=== PATIENT | female | born 1965 | race Caucasian/White ===

== ENCOUNTER 2017-11-17 08:36 | Outpatient (CLI) | payer OTHER ==
[2017-11-17 12:53] LABS: BASOPHILS # (AUTO) 0.1 10^3/uL (0.0-0.1); EOSINOPHILS # (AUTO) 0.3 10^3/uL (0.0-0.7); EOSINOPHILS % (AUTO) 2.8 %; HGB - HEMOGLOBIN 12.8 g/dL (12.0-16.0); LYMPHOCYTES % (AUTO) 30.7 %; MEAN CORPUSCULAR HEMOGLOBIN 29.6 pg (27.0-31.0); MEAN CORPUSCULAR HGB CONC 33.8 g/dL (32.0-36.0); MEAN CORPUSCULAR VOLUME 87.8 fL (81.0-99.0); MEAN PLATELET VOLUME 8.3 fL (7.9-10.8); MONOCYTES # (AUTO) 0.6 10^3/uL (0.0-1.0); MONOCYTES % (AUTO) 6.1 %; NEUTROPHILS # (AUTO) 5.7 10^3/uL (1.5-6.6); NEUTROPHILS % (AUTO) 59.4 %; PLT - PLATELET COUNT 278 10^3/uL (130-450); RED BLOOD COUNT 4.34 10^6/uL (4.20-5.40); RED CELL DISTRIBUTION WIDTH 13.8 % (12.0-15.0); WHITE BLOOD COUNT 9.6 x10^3/uL (4.8-10.8)
[2017-11-17 13:01] LABS: ALBUMIN 4.2 g/dL (3.2-5.5); ALBUMIN/GLOBULIN RATIO 1.2 (1.0-2.2); ALKALINE PHOSPHATASE 55 IU/L (42-121); ALT ALANINE AMINOTRANSFERASE 19 IU/L (10-60); AST ASPARTATE AMINOTRANSFERASE 24 IU/L (10-42); BILIRUBIN,TOTAL 0.7 mg/dL (0.2-1.0); BUN - BLOOD UREA NITROGEN 15 mg/dL (6-20); CALCIUM 9.5 mg/dL (8.5-10.3); CARBON DIOXIDE - CO2 24 mmol/L (21-32); CHLORIDE 104 mmol/L (101-111); CHOL/HDL RATIO 6.6 (<4.4); CHOLESTEROL 258 mg/dL; CREATININE 0.7 mg/dL (0.4-1.0); GFR - MDRD 88 (>89); GLUCOSE 95 mg/dL (70-100); HDL CHOLESTEROL 39 mg/dL; LDL CHOLESTEROL,CALCULATED 170 mg/dL; LDL/HDL RATIO 4.4 (<4.4); SODIUM 138 mmol/L (135-145); TOTAL PROTEIN 7.6 g/dL (6.7-8.2); VLDL CHOLESTEROL 49 mg/dL
== END 2017-11-17 08:37 ==
LOC: LAB.N 08:36
PROVIDERS: ATTEND Family Medicine
DX: E78.5 Hyperlipidemia, unspecified (principal); F41.8 Other specified anxiety disorders
CPT/HCPCS: 36415; 80053; 80061; 83721; 84443; 85025

== ENCOUNTER 2019-03-04 08:07 | Outpatient (CLI) | payer OTHER ==
--- NOTE | 2019-03-07 09:04 | Ultrasound Report ---
Reason: EPIGASTRIC PAIN, LOCALIZED SWELLING, MASS AND LUMP Procedure Date: 03/04/2019 Accession Number: [id number] / [id number] Procedure: US - Abdomen Limited CPT Code: FULL RESULT: EXAM: ABDOMEN ULTRASOUND LIMITED, RUQ EXAM DATE: 03/04/2019 09:00 AM. CLINICAL HISTORY: EPIGASTRIC PAIN, LOCALIZED SWELLING, MASS AND LUMP. COMPARISON: ABDOMEN 10/23/2014 11:27 AM. TECHNIQUE: Real-time scanning was performed with static images obtained. FINDINGS: Liver: Normal in size and echotexture. 15.2 cm. Main portal vein flow: Hepatopetal. Gallbladder: Possible sludge gallbladder neck. No stones, wall thickening, or sonographic Packer's sign. Biliary System: CBD measures 5 mm. No intrahepatic or extrahepatic ductal dilatation. Free fluid: None. Right kidney: 11 cm longitudinally. No stones, hydronephrosis, or solid masses. Other: Corresponding to the midline palpable lump is a 6.3 x 2 x 5.3 cm avascular isoechoic subcutaneous nodule, possibly a lipoma. IMPRESSION: 1. Gallbladder sludge. 2. 6.3 x 2 x 5.3 cm avascular midline subcutaneous mass corresponding to the palpable finding, possibly a lipoma. This could be confirmed by noncontrast CT. Suggest clinical follow-up. 3. Otherwise negative. RADIA
== END 2019-03-04 08:08 | disposition home or self-care (01) ==
LOC: DI 08:07
PROVIDERS: ATTEND Nurse Practitioner Gerontology
DX: R10.13 Epigastric pain (principal); R22.2 Localized swelling, mass and lump, trunk
CPT/HCPCS: 76705

== ENCOUNTER 2019-03-16 16:46 | Outpatient (CLI) | payer OTHER ==
--- NOTE | 2019-03-18 10:57 | CT Report ---
Reason: ABDOMINAL MASS, ABN US Procedure Date: 03/16/2019 Accession Number: [id number] / [id number] Procedure: CT - ABDOMEN WO CPT Code: FULL RESULT: EXAM: CT ABDOMEN EXAM DATE: 03/16/2019 05:15 PM. CLINICAL HISTORY: ABDOMINAL MASS, ABN US. COMPARISON: ABDOMEN LIMITED 03/04/2019 8:19 AM. TECHNIQUE: Routine helical CT imaging was performed through the abdomen. IV contrast: None Enteric contrast: None Reconstruction: Coronal and sagittal. In accordance with CT protocol optimization, one or more of the following dose reduction techniques were utilized for this exam: automated exposure control, adjustment of mA and/or KV based on patient size, or use of iterative reconstructive technique. FINDINGS: Lung Bases: Unremarkable. Liver: Normal. No masses. Gallbladder/Bile Ducts: Unremarkable. Spleen: Normal. Pancreas: Tiny intrapancreatic lipoma (3/42). No inflammation or ductal dilation. Adrenal Glands: Normal. Kidneys: Normal. No masses or hydronephrosis. Peritoneal Cavity/Bowel: Unremarkable stomach. Normal caliber small bowel loops. Visualized colon is unremarkable. No pathologically enlarged intraperitoneal or retroperitoneal lymph nodes. No intra-abdominal fluid collections. No intra-abdominal masses. Vasculature: Scattered atherosclerotic calcifications. No aneurysms. Bones: This disease in the spine. No focal suspicious osseous lesions. Other: No anterior abdominal wall masses are seen in the subcutaneous soft tissues on noncontrast CT. No solid anterior abdominal wall nodules are evident. No ventral hernias identified. Tiny 1.2 x 0.5 cm fat-containing umbilical hernia is noted. Anterior abdominal wall musculature is otherwise within normal limits. IMPRESSION: 1. No anterior abdominal wall masses identified on noncontrast CT. No lipoma is seen. No other solid nodules. 2. Tiny fat-containing umbilical hernia is seen. 3. No acute abnormality seen in the abdomen on noncontrast evaluation. RADIA
== END 2019-03-16 16:47 | disposition home or self-care (01) ==
LOC: DI 16:46
PROVIDERS: ATTEND Nurse Practitioner Gerontology
DX: K42.9 Umbilical hernia without obstruction or gangrene (principal)
CPT/HCPCS: 74150

== ENCOUNTER 2020-08-23 08:49 | Outpatient (CLI) | payer MEDICAID ==
[2020-08-23] MEDS ORDERED: IOVERSOL 320 100 ML VIAL IVP ONE ×2 (09:12→14:34)
[2020-08-23] MEDS ORDERED: IOPAMIDOL-300 50 ML VIAL ONE (09:12)
--- NOTE | 2020-08-23 13:24 | CT Report ---
PROCEDURE: ABDOMEN W INDICATIONS: ABDOMINAL MASS CONTRAST: IV CONTRAST: Optiray 320 ml: 100 PO CONTRAST: Isovue 300 ml50 TECHNIQUE: After the administration of oral and intravenous contrast, 5 mm thick sections acquired from the diap hragms to the iliac crests. 5 mm thick coronal and sagittal reformats were acquired. For radiation dose reduction, the following was used: automated exposure control, adjustment of mA and/or kV accor ding to patient size. COMPARISON: Prior CT scanning 03/16/2019. FINDINGS: Image quality: Excellent. Lung bases: Lung bases are clear. Heart size is normal. Solid organs: Liver and spleen are normal in size and enhancement. Gallbladder appears normal Bili citlali system is non dilated. Pancreas enhances normally. No adrenal nodules. Kidneys are normal in s ize, without hydronephrosis. Peritoneum and bowel: Contrast enhanced bowel loops appear normal in caliber. No free fluid or air. Nodes and vessels: No retroperitoneal or mesenteric adenopathy by size criteria. Aorta and inferior vena cava are normal in size. Bones: No suspicious bony lesions. No vertebral body compression fractures. Miscellaneous: No ventral hernias. The pelvis is not included on this examination. IMPRESSION: The clinical history provided is nonspecific and does not indicate site of clinical concern. No mass is identified, no herniation is seen. The pelvis was not included on this examination which was reque sted as a abdomen CT only. Reviewed by: Lior Buckner MD on 08/23/2020 1:23 PM PST Approved by: Lior Buckner MD on 08/23/2020 1:23 PM PST Station ID: [id number]
[2020-08-23] MEDS ORDERED: IOPAMIDOL-300 50 ML VIAL PO ONE (14:34)
== END 2020-08-23 08:50 | disposition home or self-care (01) ==
LOC: DI 08:49
PROVIDERS: ATTEND Family Medicine
DX: R19.00 Intra-abdominal and pelvic swelling, mass and lump, unspecified site (principal)
CPT/HCPCS: 74160; Q9967

== ENCOUNTER 2020-10-29 20:32 | Outpatient (CLI) | payer MEDICAID | END 2020-10-29 20:33 | disposition home or self-care (01) | LOC: COV 20:32 | PROVIDERS: ATTEND Surgery | DX: Z53.9 Procedure and treatment not carried out, unspecified reason (principal) ==

== ENCOUNTER 2020-11-01 07:29 | Day surgery (SDC) | payer MEDICAID ==
[~2020-11-01 07:29] MED LIST: LACTATED RINGERS 1,000 ML IV ONE
[2020-11-01 08:43] LABS: B. PARAPERTUSSIS- RESP PCR PAN NOT DETECTED; B. PERTUSSIS- RESP PCR PANEL NOT DETECTED; C. PNEUMONIAE- RESP PCR PANEL NOT DETECTED; CORONAVIRUS 229E-RESP PCR NOT DETECTED; CORONAVIRUS HKU1-RESP PCR NOT DETECTED; CORONAVIRUS NL63-RESP PCR NOT DETECTED; CORONAVIRUS OC43-RESP PCR NOT DETECTED; HUMAN METAPNEUMOVIRUS NOT DETECTED; INFLUENZA A- RESP PCR PANEL NOT DETECTED; INFLUENZA B - RESP PCR PANEL NOT DETECTED; M. PNEUMONIAE- RESP PCR PANEL NOT DETECTED; PARAINFLUENZA VIRUS 1 NOT DETECTED; PARAINFLUENZA VIRUS 2 NOT DETECTED; PARAINFLUENZA VIRUS 3 NOT DETECTED; PARAINFLUENZA VIRUS 4 NOT DETECTED; RHINOVIRUS/ENTEROVIRUS NOT DETECTED; RSV- RESP PCR PANEL NOT DETECTED; SARS-CoV-2 -RESP PCR PANEL NOT DETECTED
[2020-11-01] MEDS ORDERED: LIDO GARGLE 30 ML BOTTLE ONE (09:34)
[2020-11-01] MEDS ORDERED: fentaNYL 100 MCG/2 ML VIAL ONE (09:34)
[2020-11-01] MEDS ORDERED: MIDAZOLAM 2 MG/2 ML VIAL ONE ×3 (09:34→09:51)
[2020-11-01] MEDS ORDERED: LACTATED RINGERS 1,000 ML IV ONE (10:03)
[2020-11-01 10:31] VITALS: BP 123/88
== END 2020-11-01 07:30 | disposition home or self-care (01) ==
LOC: SDS 07:29
PROVIDERS: ATTEND Surgery
PROC: 0DB68ZX Excision of Stomach, Via Natural or Artificial Opening Endoscopic, Diagnostic (ICD-10-PCS; 2020-11-01)
PROC: 0DB58ZX Excision of Esophagus, Via Natural or Artificial Opening Endoscopic, Diagnostic (ICD-10-PCS; 2020-11-01)
PROC: 0DB98ZX Excision of Duodenum, Via Natural or Artificial Opening Endoscopic, Diagnostic (ICD-10-PCS; principal; 2020-11-01 08:15)
DX: K22.70 Barrett's esophagus without dysplasia (principal); K21.9 Gastro-esophageal reflux disease without esophagitis; Z20.822 Contact with and (suspected) exposure to COVID-19
CPT/HCPCS: 0202U; 43239; J7120

== ENCOUNTER 2021-03-11 12:07 | Outpatient (CLI) | payer MEDICAID | END 2021-03-11 23:59 | disposition home or self-care (01) | LOC: LAB.N 12:07 | PROVIDERS: ATTEND Physician Assistant Medical | DX: J01.90 Acute sinusitis, unspecified (principal); Z20.822 Contact with and (suspected) exposure to COVID-19 ==

== ENCOUNTER 2021-04-01 12:47 | Outpatient (CLI) | payer MEDICAID ==
--- NOTE | 2021-04-02 09:09 | XRAY Report ---
PROCEDURE: Shoulder 3 View RT INDICATIONS: R SHOULDER PX TECHNIQUE: 3 views of the shoulder were acquired. COMPARISON: None. FINDINGS: BONES: No acute, displaced fracture or dislocation. The glenohumeral and acromioclavicular joint spac es are maintained. Mild to moderate osteophytosis about the AC joint. SOFT TISSUES: No focal abnormality or appreciable pneumothorax. IMPRESSION: 1.No acute osseous abnormality. Reviewed by: Jeff Mauro MD on 04/01/2021 1:18 PM PDT Approved by: Jeff Mauro MD on 04/01/2021 1:18 PM PDT Station ID: [id number]
== END 2021-04-01 23:59 | disposition home or self-care (01) ==
LOC: DI.N 12:47
PROVIDERS: ATTEND Family Medicine
DX: M25.511 Pain in right shoulder (principal)

== ENCOUNTER 2021-05-27 08:56 | Outpatient (CLI) | payer MEDICAID ==
--- NOTE | 2021-05-27 16:21 | XRAY Report ---
PROCEDURE: Shoulder 1 View RT INDICATIONS: RIGHT SHOULDER PAIN TECHNIQUE: 1 views of the shoulder were acquired. COMPARISON: X-ray shoulder 04/01/2020 FINDINGS: Bones: No fractures or dislocations. No suspicious bony lesions. Visualized ribs appear intact. Soft tissues: No suspicious soft tissue calcifications. IMPRESSION: No visualized acute fracture or dislocation. However, occult injury cannot be excluded. Recommend short interval imaging follow-up in 7-10 days as clinically indicated for additional evalua tion. Reviewed by: Eboni Willams MD on 05/27/2021 4:20 PM [facility] Approved by: Eboni Willams MD on 05/27/2021 4:20 PM [facility] Station ID: [id number]
== END 2021-05-27 23:59 | disposition home or self-care (01) ==
LOC: DI.N 08:56
PROVIDERS: ATTEND Physician Assistant
DX: M25.511 Pain in right shoulder (principal)

== ENCOUNTER 2021-08-29 14:57 | Outpatient (CLI) | payer MEDICAID ==
[2021-08-29] MEDS ORDERED: GADOBUTROL 10 MMOL/10 ML VIAL ONE (15:10)
[2021-08-29 15:29] LABS: CREATININE 0.6 mg/dL (0.4-1.0)
[2021-08-29] MEDS ORDERED: GADOBUTROL 10 MMOL/10 ML VIAL IVP ONE (16:22)
--- NOTE | 2021-08-29 19:03 | MRI Report ---
PROCEDURE: MRI brain with and without contrast INDICATIONS: NUMBNESS AND TINGLING CONTRAST: IV CONTRAST: Gadavist ml: 9 TECHNIQUE: Noncontrast axial T1 spin echo, axial T2 fast spin echo, sagittal and axial FLAIR, coronal T2 fast sp in echo, axial gradient echo, axial diffusion and ADC through the brain. After the administration of contrast, axial and coronal T1 spin echo with fat saturation through the brain. COMPARISON: 11/15/2012 FINDINGS: Image quality: Excellent. CSF spaces: Basal cisterns are patent. No extra-axial fluid collections. Ventricles are normal in size and shape. Brain: No midline shift. No intracranial bleeds or masses. No abnormal intracranial enhancement. There is cerebral volume loss for age. There is periventricular white matter chronic small vessel is chemic change. The brainstem appears normal. Diffusion-weighted images demonstrate no acute infarct s. Normal intravascular flow voids are present. Skull and face: Calvarial marrow is normal in signal. Orbits appear normal. Sinuses: Fluid in the left mastoid may be inflammatory or postinflammatory IMPRESSION: 1. Atrophy and chronic ischemic change without acute hemorrhage, infarct or mass lesion. 2. Fluid in left mastoid may be inflammatory or postinflammatory Reviewed by: Dusty Chavez MD on 08/29/2021 6:01 PM [facility] Approved by: Dusty Chavez MD on 08/29/2021 6:01 PM [facility] Station ID: [id number]
== END 2021-08-29 14:58 | disposition home or self-care (01) ==
LOC: DI 14:57
PROVIDERS: ATTEND Family Medicine
DX: R20.2 Paresthesia of skin (principal); G31.89 Other specified degenerative diseases of nervous system; I67.82 Cerebral ischemia
CPT/HCPCS: 36415; 70553; 82565; A9585

== ENCOUNTER 2021-09-09 07:46 | Day surgery (SDC) | payer MEDICAID ==
[2021-09-09] MEDS ORDERED: LACTATED RINGERS 1,000 ML IV ONE ×2 (08:15→10:11)
[2021-09-09] MEDS ORDERED: CEFAZOLIN SODIUM IN 0.9 % NACL 2 GM/50 ML BAG IV ONE (08:30)
--- NOTE | 2021-09-09 09:03 | ANESTHESIA ---
Pre-Anesthesia VS, & Labs - Diagnosis abdominal wall lipoma - Procedure Excision of abdominal wall lipoma Vital Signs: Temp Pulse Resp BP Pulse Ox 36.1 C L 65 16 125/68 97 09/09/21 08:00 09/09/21 08:00 09/09/21 08:00 09/09/21 08:00 09/09/21 08:00 Height: 5 ft 5 in Weight (kg): 89.9 kg Body Mass Index: 33.0 BMI Classification: Obese - NPO >8 hours - Is Patient ?: No - Lab Results Lab results reviewed: Yes Home Medications and Allergies Home Medications: Ambulatory Orders Losartan [Cozaar] 100 mg PO DAILY 08/27/21 Multivitamin 1 each PO DAILY 08/27/21 Omeprazole Magnesium 40 tab ORAL BID 10/31/20 Losartan [Cozaar] 100 mg PO DAILY 08/27/21 Multivitamin 1 each PO DAILY 08/27/21 Allergies/Adverse Reactions: Allergies Allergy/AdvReac Type Severity Reaction Status Date / Time amoxicillin Allergy Hives Verified 08/27/21 15:47 codeine Allergy Hives Verified 08/27/21 15:47 famotidine [From Pepcid] Allergy Hives Verified 08/27/21 15:47 lidocaine Allergy elevated BP Verified 08/27/21 15:47 Anes History & Medical History - Anesthetic History Anesthesia Complications: reports: No previous complications Family history of Anesthesia Complications: Denies Family history of Malignant Hyperthermia: Denies - Medical History Cardiovascular: reports: Hypertension Pulmonary: reports: None Gastrointestinal: reports: GERD, Other Urinary: reports: None Musculoskeletal: reports: Osteoarthritis Endocrine/Autoimmune: reports: None Skin: reports: None Smoking Status: Current every day smoker - Surgical History General: reports: Colonoscopy, EGD Eyes Ears Nose Throat (EENT): reports: Myringotomy (tubes), Tonsil/Adenoidectomy Gynecologic: reports: section Orthopedic: reports: Arthroscopic surgery Exam General: Alert, Oriented x3, Cooperative, No acute distress Dental: WNL Mouth Openin Fingerbreadth Neck Mobility: Normal Mallampati classification: II Plan Anesthesia Type: General Consent for Procedure(s) Verified and Reviewed: Yes Code Status: Attempt Resuscitation ASA classification: 2-Mild systemic disease Is this case an emergency?: No
[2021-09-09] MEDS ORDERED: HYDROmorphone 0.5 MG/0.5 ML SYRINGE IVP PRN (09:06)
[2021-09-09] MEDS ORDERED: NALOXONE 0.4 MG/ML VIAL IVP PRN (09:06)
[2021-09-09] MEDS ORDERED: fentaNYL 100 MCG/2 ML VIAL IVP PRN (09:06)
[2021-09-09] MEDS ORDERED: ONDANSETRON 4 MG/2 ML VIAL IVP PRN ×2 (09:06→10:08)
[2021-09-09] MEDS ORDERED: ePHEDrine 50 MG/ML VIAL IVP PRN (09:06)
[2021-09-09] MEDS ORDERED: MORPHINE 2 MG/ML CARPUJECT IVP PRN (09:06)
[2021-09-09] MEDS ORDERED: METOCLOPRAMIDE 10 MG/2 ML VIAL IVP PRN (09:06)
[2021-09-09] MEDS ORDERED: ATROPINE ABBOJECT 1 MG/10 ML SYRINGE IVP PRN (09:06)
[2021-09-09] MEDS ORDERED: LIDOCAINE 2%-EPI 1:100000 20 ML MDV ONE (09:07)
[2021-09-09] MEDS ORDERED: BUPIVACAINE 0.5% PF 10 ML VIAL ONE (09:07)
[2021-09-09] MEDS ORDERED: MIDAZOLAM 2 MG/2 ML VIAL ONE ×2 (09:30→10:04)
[2021-09-09] MEDS ORDERED: fentaNYL 100 MCG/2 ML VIAL ONE (09:30)
[2021-09-09] MEDS ORDERED: ONDANSETRON 4 MG/2 ML VIAL ONE (09:31)
[2021-09-09] MEDS ORDERED: LACTATED RINGERS 1,000 ML IV SCH (10:00)
--- NOTE | 2021-09-09 10:05 | OPERATIVE REPORT ---
Operative Report - General Procedure Date: 09/09/21 Planned Procedure: Excision of abdominal wall lipoma Pre-Op Diagnosis: Symptomatic lipoma of the abdominal wall Procedure Performed: Excision of abdominal wall lipoma Post Op Diagnosis: Same - Procedure Note Primary Surgeon: Bee Anesthesia Provider: LINDEN Patterson Anesthesia Technique: General LMA Pathology: 4x12 cm lipoma to pathology in formalin Estimated Blood Loss (mL): 5 Indications: Symptomatic abdominal wall lipoma Findings: 12 x 4 cm fatty mass Complications: None apparent - Other Other Information/Narrative: After obtaining informed consent, the patient is brought to the operating room and placed in the supine position on the operating table. Following successful induction of general endotracheal anesthesia, appropriate padding of all bony prominences, and placement of appropriate monitors, the abdomen was prepped and draped in the standard surgical fashion. A timeout was held per scope protocol. All elements of the surgical safety checklist were followed before, during, and after the procedure. Using a 15 blade scalpel, a 4 cm horizontal incision was created directly over the palpable mass and carried down through the skin and subcutaneous tissue. The lipoma was easily identified and mobile from the remainder of the subcutaneous tissue. Areolar attachments were divided sharply. The neurovascular pedicle of the lipoma was then addressed with cautery. It was delivered into the field without difficulty. The wound was then checked for hemostasis. It was irrigated with warm water and aspirated free of all fluid and particulate matter. The wound was then closed in 2 layers with Vicryl and Monocryl suture and Dermabond was applied to the skin. All sponge, needle, and instrument counts were correct at the conclusion of the case. The patient was let awake from anesthesia without difficulty and taken to the postanesthesia care unit in good condition.
[2021-09-09] MEDS ORDERED: oxyCODONE 5 MG TABLET PO PRN (10:08)
[2021-09-09] MEDS ORDERED: HYDROmorphone 0.5 MG/0.5 ML SYRINGE ONE (10:25)
[2021-09-09 11:38] VITALS: BP 121/81
--- NOTE | 2021-09-09 13:02 | ANESTHESIA POST OP EVALUATION ---
Anesthesia Post Eval - Post Anesthesia Eval Vitals: Last Vital Signs Temp 36 C L 09/09/21 11:30 Pulse 67 09/09/21 11:30 Resp 16 09/09/21 11:30 BP 121/81 H 09/09/21 11:30 Pulse Ox 97 09/09/21 11:30 CV Function Including HR & BP: Stable Pain Control: Satisfactory Nausea & Vomiting: Negative Mental Status: Baseline Respiratory Status: Airway Patent Hydration Status: Satisfactory Anesthesia Complications: None
== END 2021-09-09 07:47 | disposition home or self-care (01) ==
LOC: SDS 07:46
PROVIDERS: ATTEND Surgery
PROC: 0JB80ZZ Excision of Abdomen Subcutaneous Tissue and Fascia, Open Approach (ICD-10-PCS; principal; 2021-09-09 09:00)
DX: D17.1 Benign lipomatous neoplasm of skin and subcutaneous tissue of trunk (principal); E66.9 Obesity, unspecified; Z68.33 Body mass index [BMI] 33.0-33.9, adult; F17.200 Nicotine dependence, unspecified, uncomplicated
CPT/HCPCS: 11406; 12032; J0690; J1170; J7120; 81025

== ENCOUNTER 2021-11-11 09:27 | Outpatient (CLI) | payer MEDICAID ==
--- NOTE | 2021-11-11 14:35 | CT Report ---
PROCEDURE: Sinuses INDICATIONS: ACUTE SINUSITIS TECHNIQUE: Noncontrast 3.0 mm axial images acquired from the frontal sinuses to the mid-sella, with coronal and sagittal reformats. For radiation dose reduction, the following was used: automated exposure control , adjustment of mA and/or kV according to patient size. COMPARISON: None. FINDINGS: Image quality: Excellent. Maxillary Sinuses: No bony remodeling or destruction. Sinuses are clear. Ethmoid Air Cells: No bony remodeling or destruction. Sinuses are clear. Sphenoid Sinuses: No bony remodeling or destruction. Sinuses are clear. Frontal Sinuses: No bony remodeling or destruction. Sinuses are clear. Ostiomeatal Complexes: Ostiomeatal complexes are patent. No Latoya cells. Miscellaneous: Visualized intra-orbital contents are normal. No leena bullosa. No nasal septal de viation. IMPRESSION: Unremarkable CT of the paranasal sinuses. No evidence of acute sinusitis Reviewed by: Dusty Chavez MD on 11/11/2021 1:34 PM [facility] Approved by: Dusty Chavez MD on 11/11/2021 1:34 PM [facility] Station ID: [id number]
== END 2021-11-11 09:28 | disposition home or self-care (01) ==
LOC: DI 09:27
PROVIDERS: ATTEND Physician Assistant Medical
DX: J01.90 Acute sinusitis, unspecified (principal)

== ENCOUNTER 2021-11-12 11:29 | Outpatient (CLI) | payer MEDICAID ==
[2021-11-13 03:12] LABS: HEPATITIS B SURFACE AB QUANT 324.4 mIU/mL (Immunity>9.9)
[2021-11-13 08:12] LABS: MEASLES ANTIBODIES IGG >300.0 AU/mL (Immune >16.4); VARICELLA-ZOSTER AB IGG 1437 index (Immune >165)
[2021-11-15 13:11] LABS: QUANTIFERON MITOGEN VALUE 3.98 IU/mL (.); QUANTIFERON NIL VALUE 0.02 IU/mL (.); QUANTIFERON TB1 AG VALUE 0.02 IU/mL (.); QUANTIFERON TB2 AG VALUE 0.01 IU/mL (.); QUANTIFERON-TB GOLD PLUS Negative (Negative)
== END 2021-11-12 11:30 | disposition home or self-care (01) ==
LOC: LAB.N 11:29
PROVIDERS: ATTEND Family Medicine
DX: Z01.84 Encounter for antibody response examination (principal); Z11.1 Encounter for screening for respiratory tuberculosis
CPT/HCPCS: 36415; 81599; 86317; 86480; 86735; 86762; 86765; 86787

== ENCOUNTER 2022-12-29 11:20 | Outpatient (CLI) | payer MEDICAID ==
[2022-12-29 18:32] LABS: BASOPHILS # (AUTO) 0.1 10^3/uL (0.0-0.1); BASOPHILS % (AUTO) 1.1 %; EOSINOPHILS # (AUTO) 0.3 10^3/uL (0.0-0.7); EOSINOPHILS % (AUTO) 3.2 %; HCT - HEMATOCRIT 39.6 % (37.0-47.0); HGB - HEMOGLOBIN 12.9 g/dL (12.0-16.0); LYMPHOCYTES # (AUTO) 3.6 10^3/uL (1.5-3.5); LYMPHOCYTES % (AUTO) 40.9 %; MEAN CORPUSCULAR HEMOGLOBIN 28.7 pg (27.0-31.0); MEAN CORPUSCULAR HGB CONC 32.6 g/dL (32.0-36.0); MEAN PLATELET VOLUME 10.2 fL (7.9-10.8); MONOCYTES # (AUTO) 0.5 10^3/uL (0.0-1.0); MONOCYTES % (AUTO) 6.1 %; NEUTROPHILS # (AUTO) 4.2 10^3/uL (1.5-6.6); NEUTROPHILS % (AUTO) 47.7 %; PLT - PLATELET COUNT 331 10^3/uL (130-450); RED CELL DISTRIBUTION WIDTH 13.7 % (12.0-15.0); WHITE BLOOD COUNT 8.9 x10^3/uL (4.8-10.8)
[2022-12-29 18:42] LABS: ALBUMIN 4.5 g/dL (3.2-5.5); ALBUMIN/GLOBULIN RATIO 1.3 (1.0-2.2); ALKALINE PHOSPHATASE 71 IU/L (42-121); ALT ALANINE AMINOTRANSFERASE 26 IU/L (10-60); AST ASPARTATE AMINOTRANSFERASE 30 IU/L (10-42); BILIRUBIN,TOTAL 0.7 mg/dL (0.2-1.0); BUN - BLOOD UREA NITROGEN 13 mg/dL (6-20); CALCIUM 9.7 mg/dL (8.5-10.3); CARBON DIOXIDE - CO2 22 mmol/L (21-32); CHLORIDE 102 mmol/L (101-111); CHOLESTEROL 289 mg/dL; CREATININE 0.7 mg/dL (0.4-1.0); GFR - MDRD 87 (>89); GLUCOSE 85 mg/dL (70-100); HDL CHOLESTEROL 41 mg/dL; LDL CHOLESTEROL,CALCULATED 195 mg/dL; LDL/HDL RATIO 4.8 (<4.4); POTASSIUM 4.3 mmol/L (3.5-5.0); SODIUM 134 mmol/L (135-145); TOTAL PROTEIN 7.9 g/dL (6.7-8.2); TRIGLYCERIDES 263 mg/dL; VLDL CHOLESTEROL 53 mg/dL
== END 2022-12-29 11:21 | disposition home or self-care (01) ==
LOC: LAB.N 11:20
PROVIDERS: ATTEND Nurse Practitioner Family
DX: I10 Essential (primary) hypertension (principal); E78.5 Hyperlipidemia, unspecified
CPT/HCPCS: 36415; 80053; 80061; 83721; 85025

== ENCOUNTER 2023-01-19 13:04 | Outpatient (CLI) | payer MEDICAID ==
--- NOTE | 2023-01-19 13:33 | XRAY Report ---
PROCEDURE: Cervical Spine Complete INDICATIONS: CERVICALGIA TECHNIQUE: 5 views of the cervical spine acquired. COMPARISON: None. FINDINGS: Bones: No fractures or dislocations to the C7 level. Oblique images demonstrate multilevel bony for aminal stenoses. Degenerative changes of the cervical spine. There is grade 1 anterolisthesis of C4 on C5. Facet and uncovertebral arthropathy. Multilevel disc height loss and anterior osteophyte forma tion. Soft tissues: No prevertebral soft tissue swelling. IMPRESSION: Multilevel degenerative changes of the cervical spine. Multilevel osseous neuroforaminal stenosis. Reviewed by: Melvin Reese MD on 01/19/2023 1:31 PM PDT Approved by: Melvin Reese MD on 01/19/2023 1:31 PM PDT Station ID: [id number]
== END 2023-01-19 13:05 | disposition home or self-care (01) ==
LOC: DI 13:04
PROVIDERS: ATTEND Nurse Practitioner Family
DX: M47.812 Spondylosis without myelopathy or radiculopathy, cervical region (principal); M43.12 Spondylolisthesis, cervical region

== ENCOUNTER 2025-03-07 09:53 | Inpatient (IN) ==
[2025-03-07 10:38] LABS: HCT - HEMATOCRIT 38.4 % (37.0-47.0); HGB - HEMOGLOBIN 13.6 g/dL (12.0-16.0); MEAN PLATELET VOLUME 8.4 fL (7.9-10.8); NRBC ABSOLUTE COUNT (AUTO) 0.00 x10^3/uL; NUCLEATED RED BLOOD CELLS AUTO 0.0 /100WBC; PLT - PLATELET COUNT 288 10^3/uL (130-450); RED CELL DISTRIBUTION WIDTH 12.7 % (12.0-15.0)
[2025-03-07 10:59] LABS: ALT ALANINE AMINOTRANSFERASE 17 IU/L (10-60); AST ASPARTATE AMINOTRANSFERASE 33 IU/L (10-42); BUN - BLOOD UREA NITROGEN 13 mg/dL (6-20); CARBON DIOXIDE - CO2 18 mmol/L (21-32); CREATININE 0.8 mg/dL (0.6-1.3); GFR - MDRD 74 (>89)
--- NOTE | 2025-03-07 11:17 | ED Physician Documentation ---
History of Present Illness Stated complaint Stated Complaint: N/V/D Chief complaint Chief Complaint: General History obtained from History obtained from: Patient and Family Additonal information Additional information: Hussein is a 59-year-old female with a history of rheumatoid arthritis who had her first injection of Orencia 3 days ago. Within 10 hours she developed nausea vomiting and diarrhea profusely. She is presenting today with shakiness weakness and dizziness. [place] Coma Scale Assess Eye opening: Spontaneous Verbal response: Oriented Motor response: Obeys Commands Total score: 15 Review of Systems Prior to Thursday 3 days ago the patient was not ill she denies any fever chills sweats cough nausea vomiting diarrhea or constipation since Thursday she has had nausea vomiting and diarrhea profusely. Meds/Allgy Home Medications Ambulatory Orders Medication Instructions Recorded Confirmed multivitamin 1 ea PO DAILY 08/27/2103/07 fluoxetine 20 mg capsule See Rx Instructions .Route 0 07/19/24 03/07/25 .COMPLEX #90 caps losartan 100 mg tablet See Rx Instructions .Route 0 07/19/24 03/07/25 .COMPLEX #90 tabs abatacept 125 mg/mL subcutaneous 125 mg subcut QWEEK 0 03/07/25 03/07/25 auto-injector (Orencia ClickJect) folic acid 1 mg tablet 1 mg PO DAILY 03/07/2503/07 methotrexate sodium 2.5 mg tablet 20 mg PO OAW 5 03/07/25 omeprazole 20 mg capsule,delayed 20 mg PO BID 03/07/25 03/07/25 release prednisone 5 mg tablet 10 - 15 mg PO DAILY 03/07/25 03/07/25 Allergies Allergies Allergy/AdvReac Type Severity Reaction Status Date / Time amoxicillin Allergy Hives Verified 03/07/25 09:10 codeine Allergy Hives Verified 03/07/25 09:10 famotidine (From Pepcid) Allergy Hives Verified 03/07/25 09:10 lidocaine Allergy elevated BP Verified 03/07/25 09:10 [facility] Active Problems All Active Problems (Updated 03/07/25 @ 15:50 by Sonya Harrison MD) Abdominal pain (Acute) Acute dehydration (Acute) Acute hypokalemia (Acute) Acute hyponatremia (Acute) Strain of left foot (Acute) Contusion of chest (Acute) Sinusitis (Acute) Upper respiratory infection (Acute) Medical History Medical History (Updated 03/07/25 @ 15:50 by Sonya Harrison MD) Rheumatoid arthritis Social History Social History Smoking Status: Smoker current status unk How many cigarettes a day do you smoke? (20 cigarettes=1 Pk): 10 Level: Independent Do you feel safe in your home environment?: Yes History of physical, verbal, emotional, or financial abuse?: No Frequency: Occasional POLST Patient has POLST: No Exam Exam Vital Signs: Vital Signs x48h Temp Pulse Resp BP Pulse Ox 03/07/25 10:17 90 20 138/108 H 98 03/07/25 09:59 36.6 C 108 H 16 97 59-year-old female who is shaking and laying in the left lateral decubitus position is able to answer questions appropriately she is hypertensive with a blood pressure of 138/108 she is tachycardic with a rate of 108. She appears distressed about the condition she is in. HENMT normocephalic and head/scalp atraumatic Eyes PERRL and EOMs intact bilaterally Neck/C-Spine visual inspection normal and trachea midline Chest inspection of chest normal Respiratory breath sounds equal bilaterally, normal respiratory effort and clear to auscultation bilaterally Cardiovascular regular rhythm noted Heart rate is greater than 100 Gastrointestinal abdomen normal to inspection, abdomen soft to palpation and nontender to palpation Genitourinary no CVA tenderness Back/Pelvis spine normal to inspection Neurology meter reader inspector II-XII intact Psychiatry mental status grossly normal Skin skin color normal Results Vitals Vitals: Vital Signs - 24 hr 03/07/25 09:59 03/07/25 10:17 Temperature 36.6 C Temperature Source Temporal Artery Scan Pulse Rate 108 H 90 Respiratory Rate 16 20 Blood Pressure 138/108 H O2 Saturation 97 98 O2 Source Room air Room air Pain Intensity 10 Oxygen O2 Source Room air Labs Labs: Laboratory Tests 03/07/25 03/07/25 10:31 11:28 WBC 15.3 H RBC 4.46 Hgb 13.6 Hct 38.4 MCV 86.1 MCH 30.5 MCHC 35.4 RDW 12.7 Plt Count 288 MPV 8.4 Neut # (Auto) 12.4 H Lymph # (Auto) 1.7 [place] # (Auto) 0.8 Eos # (Auto) 0.0 Baso # (Auto) 0.1 Absolute Nucleated RBC 0.00 Nucleated RBC % 0.0 Sodium 112 L* 113 L* Potassium 3.0 L 2.9 L Chloride 83 L 83 L Carbon Dioxide 18 L 19 L Anion Gap 11.0 11.0 BUN 13 13 Creatinine 0.8 0.7 Estimated GFR (MDRD) 74 L 86 L Glucose 101 88 Calcium 9.6 9.3 Magnesium 1.2 L Total Bilirubin 0.7 AST 33 ALT 17 Alkaline Phosphatase 63 Total Protein 7.1 Albumin 4.2 Globulin 2.9 Albumin/Globulin Ratio 1.4 Lipase < 10 L TSH 1.24 Procedures IVC sono (time) 1110: Bedside IVC sono: IVC measures (cm) (0.62), IVC collapsed c insp (cm) (complete) and Profound dehydration (est >3 LITER DEFIICT) PD Medical Decision Making ED course Complexity details: reviewed old records, reviewed results, re-evaluated patient, considered differential, d/w patient and d/w family Reviewed Lab Results: We reviewed complete blood count showing an elevated white blood cell count of 15.3 normal hemoglobin hematocrit platelets and indices. Differential favors neutrophils chemistries show a serum sodium low at 112 potassium low at 3.0 chloride low at 83 bicarb low at 18 BUN and creatinine are normal at 13 and 0.8 remainder of liver functions are normal we did an immediate repeat of the basic metabolic panel and found similar values for the electrolytes. These laboratory studies indicate critical hyponatremia and accompanying hypokalemia. ED course: Cecilia Savage presents to the emergency department with a 3-day history of nausea vomiting and diarrhea after taking Orencia for the first dose. She arrives to the emergency department shaking and feeling weak and she is found to be profoundly dehydrated with a 6.2 mm inferior vena cava with complete collapse representing greater than 3 L deficit. She is immediately administered a liter of saline. She has a serum sodium of 112 and this is new for the patient. She is administered 50 mL of hypertonic saline. Her potassium is low as well she is administered 25 mill equivalents of potassium bicarbonate and 10 mill equivalents of potassium chloride intravenously. She will require hospital admission and she has a history of use of prednisone for her rheumatoid arthritis and she is likely addisonian as well and she is given 100 mg of hydrocortisone intravenously. Case discussed with hospitalist [id number]. Discharge Plan Discharge Patient Disposition: [facility] DC/Xfer Condition: Serious Clinical Impression: Acute hyponatremia, Acute hypokalemia, Acute dehydration Interventions: ED Admission Assessment Last Done: 03/07/25 12:35 Vitals documented within 30 minutes of discharge?: Yes
[2025-03-07] MEDS: SODIUM CHLORIDE 0.9% 1,000 ML IV STA (11:43)
[2025-03-07] MEDS: POTASSIUM BICARB 25 MEQ TABLET PO STA (11:43)
[2025-03-07] MEDS: SODIUM CHLORIDE 3% HYPERTONIC 50 ML IV STA (11:44)
[2025-03-07] MEDS: POTASSIUM CHLOR 10 MEQ/100 ML 10 MEQ/100 ML BAG IV ONE (11:51)
[2025-03-07 11:54] LABS: BUN - BLOOD UREA NITROGEN 13.0 mg/dL (6-20); CARBON DIOXIDE - CO2 19.0 mmol/L (21-32); CREATININE 0.7 mg/dL (0.6-1.3); GFR - MDRD 86.0 (>89)
[2025-03-07] MEDS: HYDROCORTISONE SUCCINATE 100 MG/2 ML VIAL IVP STA (11:55)
[2025-03-07] MEDS ORDERED: MAGNESIUM SULFATE 1 GM/2 ML VIAL IVP STA (12:39)
--- NOTE | 2025-03-07 12:40 | HISTORY & PHYSICAL EXAMINATION ---
Chief Complaint Chief Complaint Chief Complaint: Intractable nausea, vomiting, diarrhea History of Present Illness Admitted From Admitted From:: Home History Obtained From Records Reviewed: EMR History obtained from: Patient Exam Limitations: None History of Present Illness HPI Comment/Other: Patient is a 59-year-old female with a history of rheumatoid arthritis who presents with intractable nausea, vomiting, diarrhea. Patient was recently diagnosed with RA, and her first injection of Orencia 3 days ago. Almost immediately after the reaction, she states that she did not feel well. She then started having explosive diarrhea, which she describes as fluorescent yellow in color. She also had nausea and vomiting. Her emesis was also yellow-colored. Her appetite was poor, and she cannot keep anything down without vomiting. She has some mild abdominal pain, which when she thinks about it is localized to her right upper quadrant. She describes it as cramping in nature. She did attend a picnic on the Thursday prior to this injection. She did have some potato salad and salmon. Nobody else at the picnic got sick except for her. She has had no fevers or chills. In the ER, patient was tachycardic with heart rate of 108, afebrile, saturating 97% on room air. Her blood pressure was within normal limits at 138/108. White count was elevated at 15.3. Her sodium was low at 113, potassium was 2.9, and she did not anion gap metabolic acidosis. Her magnesium was also low at 1.2. Her AST, ALT, ALP were within normal limits and her lipase was negative. TSH was within normal limits. UA was negative for any infection. Abdominal ultrasound is ordered, pending. Meds/Allgy Home Medications Ambulatory Orders Medication Instructions Recorded Confirmed multivitamin 1 ea PO DAILY 08/27/2103/07 fluoxetine 20 mg capsule See Rx Instructions .Route 0 07/19/24 03/07/25 .COMPLEX #90 caps losartan 100 mg tablet See Rx Instructions .Route 0 07/19/24 03/07/25 .COMPLEX #90 tabs abatacept 125 mg/mL subcutaneous 125 mg subcut QWEEK 0 03/07/25 03/07/25 auto-injector (Orencia ClickJect) folic acid 1 mg tablet 1 mg PO DAILY 03/07/2503/07 methotrexate sodium 2.5 mg tablet 20 mg PO OAW 5 03/07/25 omeprazole 20 mg capsule,delayed 20 mg PO BID 03/07/25 03/07/25 release prednisone 5 mg tablet 10 - 15 mg PO DAILY 03/07/25 03/07/25 Allergies Allergies Allergy/AdvReac Type Severity Reaction Status Date / Time amoxicillin Allergy Hives Verified 03/07/25 09:10 codeine Allergy Hives Verified 03/07/25 09:10 famotidine (From Pepcid) Allergy Hives Verified 03/07/25 09:10 lidocaine Allergy elevated BP Verified 03/07/25 09:10 PFSH Active Problems All Active Problems (Updated 03/07/25 @ 15:50 by Sonya Harrison MD) Abdominal pain (Acute) Acute dehydration (Acute) Acute hypokalemia (Acute) Acute hyponatremia (Acute) Strain of left foot (Acute) Contusion of chest (Acute) Sinusitis (Acute) Upper respiratory infection (Acute) Medical History Medical History (Updated 03/07/25 @ 15:50 by Sonya Harrison MD) Rheumatoid arthritis Social History Social History Smoking Status: Smoker current status unk How many cigarettes a day do you smoke? (20 cigarettes=1 Pk): 10 Level: Independent Do you feel safe in your home environment?: Yes History of physical, verbal, emotional, or financial abuse?: No Frequency: Occasional POLST Patient has POLST: No Review of Systems Constitutional Reports: Weakness and Poor appetite; Denies: Fatigue, Fever, Chills or Malaise Eyes Denies: Pain, Irritation, Blurry vision, Vision loss, Diplopia or Eye discomfort Ears, nose, mouth, and throat Denies: Ear pain, Hearing loss, Tinnitus, Nose bleeds, Nasal discharge or Bleeding gums Cardiovascular Denies: Irregular heart rate, chest pain, palpitations, edema, Syncope or shortness of breath with exertion Respiratory Denies: Shortness of breath, Cough, Sputum production or Wheezing Gastrointestinal Reports: Abdominal pain, Nausea, Vomiting, Poor appetite, Bile emesis, Diarrhea, Bloating and Belching; Denies: Abdominal distention, Heartburn or Constipation Genitourinary Denies: Painful urination, Urinary frequency or Urinary urgency Musculoskeletal Denies: Back pain, Extremity pain, Extremity swelling or Joint pain Integumentary/Breast Denies: Rash, Itching, Dryness, Redness or Skin pain Neurological Reports: General weakness; Denies: Headache, Weakness in extremities, Numbness in extremities, Abnormal gait or Dizziness Psychiatric Denies: Depression, Anxiety, Mood swings or Panic attacks Endocrine Denies: Excessive urination, Excessive thirst or Fatigue Hematologic/Lymphatic Denies: Anemia or Easy bruising Allergic/Immunologic Denies: Hives, Tongue swelling, Facial swelling or Wheezing Exam Exam Vital Signs: Vital Signs x48h Temp Pulse Pulse Resp BP BP Pulse Ox 03/07/25 15:00 83 22 138/83 H 98 03/07/25 14:00 96 24 160/95 H 94 03/07/25 13:00 84 18 137/84 H 96 03/07/25 12:40 98.1 F 84 21 155/87 H 97 03/07/25 12:35 89 21 98 03/07/25 12:01 87 22 98 03/07/25 11:52 89 21 147/98 H 98 03/07/25 10:17 90 20 138/108 H 98 03/07/25 09:59 97.9 F 108 H 16 97 Constitutional normal general appearance, no apparent distress, average body habitus and no limitations HENMT normocephalic, head/scalp atraumatic and hearing grossly normal bilaterally Eyes PERRL, EOMs intact bilaterally and conjunctivae normal Neck/C-Spine visual inspection normal, trachea midline and cervical spine nontender Chest inspection of chest normal Respiratory breath sounds equal bilaterally, normal respiratory effort, clear to auscultation bilaterally, no wheezes, no rales and no retractions Cardiovascular normal heart rate noted, regular rhythm noted, no gallop, no rub and no murmur Gastrointestinal abdomen normal to inspection, abdomen soft to palpation, nontender to palpation and normoactive bowel sounds Genitourinary no CVA tenderness and bladder normal to palpation Back/Pelvis spine normal to inspection, no thoracic spine tenderness and no lumbar spine tenderness Extremities normal to inspection, normal to palpation, no tenderness and full ROM Neurology no movement abnormality noted and no focal motor deficit noted Psychiatry mental status grossly normal, oriented x3, thought process normal, cooperative and affect normal Skin skin color normal, no rash, no lesions and no wounds Conclusion/Plan Problem List (1) Acute hyponatremia: Plan: Patient presents with extensive GI lossesdiarrhea, nausea, as well as episodes of high-volume emesis. Has been unable to keep anything down for over 48 hours. Sodium of 112 on admission, received 1 L sodium chloride bolus, 50 cc of hypertonic saline with improvement to 118. Goal correction of about 8 mill equivalents over 24 hours,, i.e. Goal of 120 10 AM tomorrow morning. Hold IV fluids at this time. Continue to trend BMPs every 4 hours. (2) Acute hypokalemia: Plan: Due to GI losses. Continue to replete, continue to trend. (3) Abdominal pain: Plan: Likely due to musculoskeletal pain with retching. She does have some localized pain in her right upper quadrant. AST, ALT, ALP all within normal limits. Abdominal ultrasound is ordered, pending. Continue Zofran as needed. Stool studies are also ordered, pending. Qualifiers: Abdominal location: unspecified location Qualified Code(s): R10.9 - Unspecified abdominal pain (4) Rheumatoid arthritis: Plan: Follows with rheumatology outpatient. Not currently taking prednisone. Qualifiers: Rheumatoid arthritis location: unspecified site Rheumatoid factor presence: unspecified presence Qualified Code(s): M06.9 - Rheumatoid arthritis, unspecified Lab Results 03/07/25 10:31 03/07/25 13:39 Diagnostic Imaging Results Diagnostic Imaging Results: positive Final report reviewed Core Measures Anticipated LOS I expect patient to be DC'd or transferred within 96 hours.: Yes DVT/VTE - Prophylaxis VTE/DVT Device ordered at admit?: No VTE/DVT Prophylaxis med ordered at admit?: Yes
[2025-03-07] MEDS: MAGNESIUM SULFATE 2 GRAM 2 GM/50 ML BAG IV ONE (13:46)
[2025-03-07] MEDS: POTASSIUM CHLOR 10 MEQ/100 ML 10 MEQ/100 ML BAG IV SCH (13:47)
[2025-03-07 14:06] LABS: BUN - BLOOD UREA NITROGEN 11.0 mg/dL (6-20); CARBON DIOXIDE - CO2 18.0 mmol/L (21-32); CREATININE 0.6 mg/dL (0.6-1.3); GFR - MDRD 103.0 (>89)
[2025-03-07 14:12] LABS: GLUCOSE, URINE (UA) NEGATIVE (NEGATIVE); KETONES,URINE (UA) 15 mg/dL (NEGATIVE); OCCULT BLOOD,URINE SMALL (NEGATIVE)
[2025-03-07] MEDS: ACETAMINOPHEN 325 MG TABLET PO PRN (14:22)
[2025-03-07 14:35] LABS: SQUAMOUS EPITHELIAL CELL,UR FEW Squamous (<= Few)
--- NOTE | 2025-03-07 14:57 | PHARMACY PROGRESS NOTE ---
Best Possible Medication History Admit Date and Time: 03/07/25 1151 Home Medications Medication Instructions Recorded Confirmed Type multivitamin 1 ea PO DAILY 08/27/2103/07 History fluoxetine 20 mg capsule See Rx Instructions .Route 0 07/19/24 03/07/25 Rx .COMPLEX #90 caps losartan 100 mg tablet See Rx Instructions .Route 0 07/19/24 03/07/25 Rx .COMPLEX #90 tabs abatacept 125 mg/mL subcutaneous 125 mg subcut QWEEK 0 03/07/25 03/07/25 History auto-injector (Orencia ClickJect) folic acid 1 mg tablet 1 mg PO DAILY 03/07/2503/07 History methotrexate sodium 2.5 mg tablet 20 mg PO OAW 5 03/07/25 History omeprazole 20 mg capsule,delayed 20 mg PO BID 03/07/25 03/07/25 History release prednisone 5 mg tablet 10 - 15 mg PO DAILY 03/07/25 03/07/25 History Processed by: Pharmacy Medications reviewed in ED?: No Medication History completed: Yes Patient Interview: Completed Secondary Source(s): Insurance records [facility] Statement: As the person ultimately responsible for medication therapy, providers are able to order a medication from an existing home medication list in [facility] via the "Reconcile Routine" prior to Confirmation of that medication by director of operations support. Such practice is discouraged except when the physician, in their clinical judgment, deems that a medical need exists for a medication without regard to previous use.
[2025-03-07] MEDS: SODIUM CHLORIDE FLUSH 0.9% 10 ML SYRINGE IVP SCH (16:36)
[2025-03-07] MEDS: ONDANSETRON 4 MG/2 ML VIAL IVP PRN (17:26)
[2025-03-07 17:31] LABS: B. PARAPERTUSSIS- RESP PCR PAN NOT DETECTED; B. PERTUSSIS- RESP PCR PANEL NOT DETECTED; C. PNEUMONIAE- RESP PCR PANEL NOT DETECTED; CORONAVIRUS 229E-RESP PCR NOT DETECTED; CORONAVIRUS HKU1-RESP PCR NOT DETECTED; CORONAVIRUS NL63-RESP PCR NOT DETECTED; CORONAVIRUS OC43-RESP PCR NOT DETECTED; HUMAN METAPNEUMOVIRUS NOT DETECTED; INFLUENZA A- RESP PCR PANEL NOT DETECTED; INFLUENZA B - RESP PCR PANEL NOT DETECTED; M. PNEUMONIAE- RESP PCR PANEL NOT DETECTED; PARAINFLUENZA VIRUS 1 NOT DETECTED; PARAINFLUENZA VIRUS 2 NOT DETECTED; PARAINFLUENZA VIRUS 4 NOT DETECTED; RHINOVIRUS/ENTEROVIRUS NOT DETECTED; RSV- RESP PCR PANEL NOT DETECTED; SARS-CoV-2 -RESP PCR PANEL NOT DETECTED
[2025-03-07] MEDS: SODIUM CHLORIDE FLUSH 0.9% 10 ML SYRINGE IVP PRN (19:27)
[2025-03-07] MEDS ORDERED: NICOTINE 21 MG PATCH TOP PRN (19:31)
[2025-03-07] MEDS: KETOROLAC 15 MG/ML VIAL IVP PRN (19:39)
[2025-03-07] MEDS: HEPARIN 5,000 UNIT/ML VIAL SUBQ SCH (20:36)
[2025-03-07] MEDS: POTASSIUM CHLORIDE 20 MEQ TABLET PO ONE (22:10)
[2025-03-08] MEDS: POTASSIUM CHLOR 10 MEQ/100 ML 10 MEQ/100 ML BAG IV SCH (02:29)
[2025-03-08] MEDS ORDERED: hydrALAZINE INJ 20 MG/ML VIAL IVP PRN (03:55)
[2025-03-08 05:36] LABS: HCT - HEMATOCRIT 35.7 % (37.0-47.0); HGB - HEMOGLOBIN 12.3 g/dL (12.0-16.0); MEAN PLATELET VOLUME 8.5 fL (7.9-10.8); NRBC ABSOLUTE COUNT (AUTO) 0.00 x10^3/uL; NUCLEATED RED BLOOD CELLS AUTO 0.0 /100WBC; PLT - PLATELET COUNT 301 10^3/uL (130-450); RED CELL DISTRIBUTION WIDTH 12.8 % (12.0-15.0)
[2025-03-08 05:45] LABS: VBG PH 7.418 (7.31-7.41)
[2025-03-08 05:53] LABS: BUN - BLOOD UREA NITROGEN 12.0 mg/dL (6-20); CARBON DIOXIDE - CO2 16.0 mmol/L (21-32); CREATININE 0.7 mg/dL (0.6-1.3); GFR - MDRD 86.0 (>89); PHOSPHORUS 2.9 mg/dL (2.5-5.0)
--- NOTE | 2025-03-08 08:31 | PROVIDER PROGRESS NOTE ---
Subjective Subjective Subjective: Today, patient is doing slightly better. She is still having some loose stools, but lower in quantity. She feels a little nauseous, but has been able to keep down half her of her sandwich. She does have some abdominal pain, localized more in her right upper quadrant. She states that this is been going on for about 6 months. Current Medications Current Medications Current Medications: Current Medications Generic Name Dose Route Start Last Admin Trade Name Freq PRN Reason Stop Dose Admin Acetaminophen 650 mg 03/07/25 14:07 03/07/25 18:30 Acetaminophen 325 Mg Tablet PO 650 mg Q4HR PRN Administration Pain or Fever > 38C (100.4F) Fluoxetine HCl 20 mg 03/08/25 09:00 Fluoxetine 10 Mg Capsule PO DAILY STEPHENIE Folic Acid 1 mg 03/08/25 09:00 Folic Acid 1 Mg Tablet PO DAILY STEPHENIE Heparin Sodium (Porcine) 5,000 unit 03/07/25 21:00 03/07/25 20:36 Heparin 5,000 Unit/Ml Vial SUBQ 5,000 unit BID STEPHENIE Administration Hydralazine HCl 5 mg 03/08/25 03:55 Hydralazine Inj 20 Mg/Ml Vial IVP Q8H PRN hypertension Sodium Chloride 1,000 mls @ 75 mls/hr 03/08/25 08:00 Normal Saline 0.9% IV .[id number] STEPHENIE Ketorolac Tromethamine 15 mg 03/07/25 19:33 03/08/25 01:27 Ketorolac 15 Mg/Ml Vial IVP 03/12/25 19:32 15 mg Q6HR PRN Administration Severe Pain (Level 7-10) Losartan Potassium 100 mg 03/08/25 09:00 Losartan 50 Mg Tablet PO DAILY STEPHENIE Multivitamins 1 tab 03/08/25 08:00 Multivitamin Tablet PO DAILYWM [facility] Nicotine 1 patch 03/07/25 19:31 Nicotine 21 Mg Patch TOP DAILY PRN cravings Ondansetron HCl 4 mg 03/07/25 14:07 03/07/25 17:26 Ondansetron 4 Mg/2 Ml Vial IVP 4 mg Q4HR PRN Administration Nausea / Vomiting Pantoprazole Sodium 40 mg 03/08/25 08:00 Pantoprazole 40 Mg Tablet PO BIDAC STEPHENIE Prednisone 10 mg 03/08/25 09:00 Prednisone 5 Mg Tablet PO DAILY STEPHENIE Sodium Chloride 10 ml 03/07/25 17:00 03/08/25 00:09 Sodium Chloride Flush 0.9% 10 Ml Syringe IVP Not Given 0100,0900,1700 STEPHENIE Sodium Chloride 10 ml 03/07/25 12:58 03/08/25 01:28 Sodium Chloride Flush 0.9% 10 Ml Syringe IVP 10 ml PRN PRN Administration NEEDED PER PROVIDER ORDERS Objective Vital Signs/Intake & Output Reviewed Vital Signs: Yes Vital Signs: Vital Signs x48h Temp Pulse Resp BP BP BP Pulse Ox 03/08/25 07:00 81 22 149/100 H 95 03/08/25 06:00 75 19 155/96 H 97 03/08/25 05:00 76 28 H 160/85 H 96 03/08/25 04:30 72 156/86 H 03/08/25 04:00 98.1 F 76 15 160/105 H 98 03/08/25 03:00 67 14 175/95 H 97 03/08/25 02:00 71 14 149/76 H 97 03/08/25 01:00 70 25 H 144/67 H 97 Intake & Output: Intake & Output 03/05/25 03/06/25 03/07/25 03/08/25 23:59 23:59 23:59 23:59 Intake Total 2412 / 2412 550 / 550 Output Total 3050 / 3050 0 / 0 Balance -638 / -638 550 / 550 Weight (kg) 90 kg 88 kg Objective General Appearance: positive No acute distress and Alert; negative Anxious Eyes Bilateral: positive Normal inspection, PERRL and EOMI ENT: positive ENT inspection nml, Pharynx nml and No signs of dehydration Neck: positive Nml inspection, Thyroid nml and No JVD Respiratory: positive Chest non-tender, No respiratory distress and Breath sounds nml; negative Wheezes, Rales or Rhonchi Cardiovascular: positive Regular rate & rhythm, No murmur and No gallop; negative Tachycardia or Systolic murmur Abdomen: positive No organomegaly, No distention and Tenderness (RUQ, mild); negative Guarding, Rebound or Splenomegaly Back: positive Nml inspection; negative CVA tenderness (R) or CVA tenderness (L) Skin: positive Color nml, No rash, Warm and Dry Extremities: positive Non-tender, Full ROM, Nml appearance and No pedal edema Neurologic/Psychiatric: positive Oriented x3, Motor nml and Mood/affect nml Lab Results 03/08/25 05:23 03/08/25 09:00 Other Labs: Lab Results x24hrs 03/08/25 03/08/25 03/07/25 Range/Units 05:23 00:17 21:06 WBC 11.6 H (4.8-10.8) x10^3/uL RBC 4.03 L (4.20-5.40) 10^6/uL Hgb 12.3 (12.0-16.0) g/dL Hct 35.7 L (37.0-47.0) % MCV 88.6 (81.0-99.0) fL MCH 30.5 (27.0-31.0) pg MCHC 34.5 (32.0-36.0) g/dL RDW 12.8 (12.0-15.0) % Plt Count 301 (130-450) 10^3/uL MPV 8.5 (7.9-10.8) fL Neut # (Auto) 8.1 H (1.5-6.6) 10^3/uL Lymph # (Auto) 2.2 (1.5-3.5) 10^3/uL [place] # (Auto) 1.0 (0.0-1.0) 10^3/uL Eos # (Auto) 0.0 (0.0-0.7) 10^3/uL Baso # (Auto) 0.1 (0.0-0.1) 10^3/uL Absolute Nucleated RBC 0.00 x10^3/uL Nucleated RBC % 0.0 /100WBC VBG pH 7.418 H (7.31-7.41) Ionized Calcium 1.23 (1.09-1.30) mmol/L Sodium 121 L 121 L 120 L* (135-145) mmol/L Potassium 3.8 3.7 3.9 (3.5-4.5) mmol/L Chloride 95 L (101-111) mmol/L Carbon Dioxide 16 L (21-32) mmol/L Anion Gap 10.0 (6-13) BUN 12 (6-20) mg/dL Creatinine 0.7 (0.6-1.3) mg/dL Estimated GFR (MDRD) 86 L (>89) Glucose 87 (74-104) mg/dL Calcium 8.8 (8.5-10.3) mg/dL Phosphorus 2.9 (2.5-5.0) mg/dL Magnesium 1.9 (1.7-2.3) mg/dL Total Bilirubin (0.2-1.0) mg/dL AST (10-42) IU/L ALT (10-60) IU/L Alkaline Phosphatase (42-121) IU/L Troponin I High Sens (2.3-14.8) ng/L Total Protein (6.4-8.9) g/dL Albumin (3.2-5.5) g/dL Globulin (2.1-4.2) g/dL Albumin/Globulin Ratio (1.0-2.2) Lipase (11-82) U/L TSH (0.34-5.60) uIU/mL Urine Color Urine Clarity (CLEAR) Urine pH (5.0-7.5) PH Ur Specific [place] (1.002-1.030) Urine Protein (NEGATIVE) mg/dL Urine Glucose (UA) (NEGATIVE) mg/dL Urine Ketones (NEGATIVE) mg/dL Urine Occult Blood (NEGATIVE) Urine Nitrite (NEGATIVE) Urine Bilirubin (NEGATIVE) Urine Urobilinogen (NORMAL) E.U./dL Ur Leukocyte Esterase (NEGATIVE) Urine RBC (0-5) /HPF Urine WBC (0-5) /HPF Ur Squamous Epith Cells (<= Few) Urine Bacteria (None Seen) /HPF Ur Microscopic Review Urine Culture Comments Nasal Adenovirus (PCR) Nasal B. parapertussis DNA (PCR) Nasal Coronavir 229E PCR Nasal Coronavir HKU1 PCR Nasal Coronavir NL63 PCR Nasal Coronavir OC43 PCR Nasal Enterovir/Rhinovir PCR Nasal Influenza B PCR Nasal Influenza A PCR Nasal Parainfluen 1 PCR Nasal Parainfluen 2 PCR Nasal Parainfluen 3 PCR Nasal Parainfluen 4 PCR Nasal RSV (PCR) Nasal Screen MRSA (PCR) (NEGATIVE) Nasal B.pertussis DNA PCR Nasal C.pneumoniae (PCR) Tor Human Metapneumo PCR Nasal M.pneumoniae (PCR) Nasal SARS-CoV-2 (PCR) 03/07/25 03/07/25 03/07/25 Range/Units 17:18 16:37 13:50 WBC (4.8-10.8) x10^3/uL RBC (4.20-5.40) 10^6/uL Hgb (12.0-16.0) g/dL Hct (37.0-47.0) % MCV (81.0-99.0) fL MCH (27.0-31.0) pg MCHC (32.0-36.0) g/dL RDW (12.0-15.0) % Plt Count (130-450) 10^3/uL MPV (7.9-10.8) fL Neut # (Auto) (1.5-6.6) 10^3/uL Lymph # (Auto) (1.5-3.5) 10^3/uL [place] # (Auto) (0.0-1.0) 10^3/uL Eos # (Auto) (0.0-0.7) 10^3/uL Baso # (Auto) (0.0-0.1) 10^3/uL Absolute Nucleated RBC x10^3/uL Nucleated RBC % /100WBC VBG pH (7.31-7.41) Ionized Calcium (1.09-1.30) mmol/L Sodium 120 L* (135-145) mmol/L Potassium (3.5-4.5) mmol/L Chloride (101-111) mmol/L Carbon Dioxide (21-32) mmol/L Anion Gap (6-13) BUN (6-20) mg/dL Creatinine (0.6-1.3) mg/dL Estimated GFR (MDRD) (>89) Glucose (74-104) mg/dL Calcium (8.5-10.3) mg/dL Phosphorus (2.5-5.0) mg/dL Magnesium 2.0 (1.7-2.3) mg/dL Total Bilirubin (0.2-1.0) mg/dL AST (10-42) IU/L ALT (10-60) IU/L Alkaline Phosphatase (42-121) IU/L Troponin I High Sens 7.7 (2.3-14.8) ng/L Total Protein (6.4-8.9) g/dL Albumin (3.2-5.5) g/dL Globulin (2.1-4.2) g/dL Albumin/Globulin Ratio (1.0-2.2) Lipase (11-82) U/L TSH (0.34-5.60) uIU/mL Urine Color YELLOW Urine Clarity CLEAR (CLEAR) Urine pH 6.0 (5.0-7.5) PH Ur Specific [place] 1.010 (1.002-1.030) Urine Protein TRACE (NEGATIVE) mg/dL Urine Glucose (UA) NEGATIVE (NEGATIVE) mg/dL Urine Ketones 15 H (NEGATIVE) mg/dL Urine Occult Blood SMALL (NEGATIVE) Urine Nitrite NEGATIVE (NEGATIVE) Urine Bilirubin NEGATIVE (NEGATIVE) Urine Urobilinogen 0.2 (NORMAL) (NORMAL) E.U./dL Ur Leukocyte Esterase NEGATIVE (NEGATIVE) Urine RBC 0-5 (0-5) /HPF Urine WBC 0-3 (0-5) /HPF Ur Squamous Epith Cells FEW Squamous (<= Few) Urine Bacteria Few (None Seen) /HPF Ur Microscopic Review INDICATED Urine Culture Comments NOT INDICATED Nasal Adenovirus (PCR) NOT DETECTED Nasal B. parapertussis DNA (PCR) NOT DETECTED Nasal Coronavir 229E PCR NOT DETECTED Nasal Coronavir HKU1 PCR NOT DETECTED Nasal Coronavir NL63 PCR NOT DETECTED Nasal Coronavir OC43 PCR NOT DETECTED Nasal Enterovir/Rhinovir PCR NOT DETECTED Nasal Influenza B PCR NOT DETECTED Nasal Influenza A PCR NOT DETECTED Nasal Parainfluen 1 PCR NOT DETECTED Nasal Parainfluen 2 PCR NOT DETECTED Nasal Parainfluen 3 PCR NOT DETECTED Nasal Parainfluen 4 PCR NOT DETECTED Nasal RSV (PCR) NOT DETECTED Nasal Screen MRSA (PCR) (NEGATIVE) Nasal B.pertussis DNA PCR NOT DETECTED Nasal C.pneumoniae (PCR) NOT DETECTED Tor Human Metapneumo PCR NOT DETECTED Nasal M.pneumoniae (PCR) NOT DETECTED Nasal SARS-CoV-2 (PCR) NOT DETECTED 03/07/25 03/07/25 03/07/25 Range/Units 13:39 12:43 11:28 WBC (4.8-10.8) x10^3/uL RBC (4.20-5.40) 10^6/uL Hgb (12.0-16.0) g/dL Hct (37.0-47.0) % MCV (81.0-99.0) fL MCH (27.0-31.0) pg MCHC (32.0-36.0) g/dL RDW (12.0-15.0) % Plt Count (130-450) 10^3/uL MPV (7.9-10.8) fL Neut # (Auto) (1.5-6.6) 10^3/uL Lymph # (Auto) (1.5-3.5) 10^3/uL [place] # (Auto) (0.0-1.0) 10^3/uL Eos # (Auto) (0.0-0.7) 10^3/uL Baso # (Auto) (0.0-0.1) 10^3/uL Absolute Nucleated RBC x10^3/uL Nucleated RBC % /100WBC VBG pH (7.31-7.41) Ionized Calcium (1.09-1.30) mmol/L Sodium 118 L* 113 L* (135-145) mmol/L Potassium 3.1 L 2.9 L (3.5-4.5) mmol/L Chloride 90 L 83 L (101-111) mmol/L Carbon Dioxide 18 L 19 L (21-32) mmol/L Anion Gap 10.0 11.0 (6-13) BUN 11 13 (6-20) mg/dL Creatinine 0.6 0.7 (0.6-1.3) mg/dL Estimated GFR (MDRD) 103 86 L (>89) Glucose 90 88 (74-104) mg/dL Calcium 8.8 9.3 (8.5-10.3) mg/dL Phosphorus (2.5-5.0) mg/dL Magnesium 1.2 L (1.7-2.3) mg/dL Total Bilirubin (0.2-1.0) mg/dL AST (10-42) IU/L ALT (10-60) IU/L Alkaline Phosphatase (42-121) IU/L Troponin I High Sens (2.3-14.8) ng/L Total Protein (6.4-8.9) g/dL Albumin (3.2-5.5) g/dL Globulin (2.1-4.2) g/dL Albumin/Globulin Ratio (1.0-2.2) Lipase (11-82) U/L TSH (0.34-5.60) uIU/mL Urine Color Urine Clarity (CLEAR) Urine pH (5.0-7.5) PH Ur Specific [place] (1.002-1.030) Urine Protein (NEGATIVE) mg/dL Urine Glucose (UA) (NEGATIVE) mg/dL Urine Ketones (NEGATIVE) mg/dL Urine Occult Blood (NEGATIVE) Urine Nitrite (NEGATIVE) Urine Bilirubin (NEGATIVE) Urine Urobilinogen (NORMAL) E.U./dL Ur Leukocyte Esterase (NEGATIVE) Urine RBC (0-5) /HPF Urine WBC (0-5) /HPF Ur Squamous Epith Cells (<= Few) Urine Bacteria (None Seen) /HPF Ur Microscopic Review Urine Culture Comments Nasal Adenovirus (PCR) Nasal B. parapertussis DNA (PCR) Nasal Coronavir 229E PCR Nasal Coronavir HKU1 PCR Nasal Coronavir NL63 PCR Nasal Coronavir OC43 PCR Nasal Enterovir/Rhinovir PCR Nasal Influenza B PCR Nasal Influenza A PCR Nasal Parainfluen 1 PCR Nasal Parainfluen 2 PCR Nasal Parainfluen 3 PCR Nasal Parainfluen 4 PCR Nasal RSV (PCR) Nasal Screen MRSA (PCR) NEGATIVE (NEGATIVE) Nasal B.pertussis DNA PCR Nasal C.pneumoniae (PCR) Tor Human Metapneumo PCR Nasal M.pneumoniae (PCR) Nasal SARS-CoV-2 (PCR) 03/07/25 Range/Units 10:31 WBC 15.3 H (4.8-10.8) x10^3/uL RBC 4.46 (4.20-5.40) 10^6/uL Hgb 13.6 (12.0-16.0) g/dL Hct 38.4 (37.0-47.0) % MCV 86.1 (81.0-99.0) fL MCH 30.5 (27.0-31.0) pg MCHC 35.4 (32.0-36.0) g/dL RDW 12.7 (12.0-15.0) % Plt Count 288 (130-450) 10^3/uL MPV 8.4 (7.9-10.8) fL Neut # (Auto) 12.4 H (1.5-6.6) 10^3/uL Lymph # (Auto) 1.7 (1.5-3.5) 10^3/uL [place] # (Auto) 0.8 (0.0-1.0) 10^3/uL Eos # (Auto) 0.0 (0.0-0.7) 10^3/uL Baso # (Auto) 0.1 (0.0-0.1) 10^3/uL Absolute Nucleated RBC 0.00 x10^3/uL Nucleated RBC % 0.0 /100WBC VBG pH (7.31-7.41) Ionized Calcium (1.09-1.30) mmol/L Sodium 112 L* (135-145) mmol/L Potassium 3.0 L (3.5-4.5) mmol/L Chloride 83 L (101-111) mmol/L Carbon Dioxide 18 L (21-32) mmol/L Anion Gap 11.0 (6-13) BUN 13 (6-20) mg/dL Creatinine 0.8 (0.6-1.3) mg/dL Estimated GFR (MDRD) 74 L (>89) Glucose 101 (74-104) mg/dL Calcium 9.6 (8.5-10.3) mg/dL Phosphorus (2.5-5.0) mg/dL Magnesium (1.7-2.3) mg/dL Total Bilirubin 0.7 (0.2-1.0) mg/dL AST 33 (10-42) IU/L ALT 17 (10-60) IU/L Alkaline Phosphatase 63 (42-121) IU/L Troponin I High Sens (2.3-14.8) ng/L Total Protein 7.1 (6.4-8.9) g/dL Albumin 4.2 (3.2-5.5) g/dL Globulin 2.9 (2.1-4.2) g/dL Albumin/Globulin Ratio 1.4 (1.0-2.2) Lipase < 10 L (11-82) U/L TSH 1.24 (0.34-5.60) uIU/mL Urine Color Urine Clarity (CLEAR) Urine pH (5.0-7.5) PH Ur Specific [place] (1.002-1.030) Urine Protein (NEGATIVE) mg/dL Urine Glucose (UA) (NEGATIVE) mg/dL Urine Ketones (NEGATIVE) mg/dL Urine Occult Blood (NEGATIVE) Urine Nitrite (NEGATIVE) Urine Bilirubin (NEGATIVE) Urine Urobilinogen (NORMAL) E.U./dL Ur Leukocyte Esterase (NEGATIVE) Urine RBC (0-5) /HPF Urine WBC (0-5) /HPF Ur Squamous Epith Cells (<= Few) Urine Bacteria (None Seen) /HPF Ur Microscopic Review Urine Culture Comments Nasal Adenovirus (PCR) Nasal B. parapertussis DNA (PCR) Nasal Coronavir 229E PCR Nasal Coronavir HKU1 PCR Nasal Coronavir NL63 PCR Nasal Coronavir OC43 PCR Nasal Enterovir/Rhinovir PCR Nasal Influenza B PCR Nasal Influenza A PCR Nasal Parainfluen 1 PCR Nasal Parainfluen 2 PCR Nasal Parainfluen 3 PCR Nasal Parainfluen 4 PCR Nasal RSV (PCR) Nasal Screen MRSA (PCR) (NEGATIVE) Nasal B.pertussis DNA PCR Nasal C.pneumoniae (PCR) Tor Human Metapneumo PCR Nasal M.pneumoniae (PCR) Nasal SARS-CoV-2 (PCR) Assessment/Plan Problem List (1) Acute hyponatremia: Impression: Patient presented with extensive GI lossesdiarrhea, nausea, as well as episodes of high-volume emesis. Has been unable to keep anything down for over 48 hours. Sodium of 112 on admission, received 1 L sodium chloride bolus, 50 cc of hypertonic saline with improvement to 120 in 24 hours. Goal correct to 128 by tomorrow morning. Continue to trend BMPs every 4 hours. (2) Acute hypokalemia: Impression: Due to GI losses. Continue to replete, continue to trend. (3) Abdominal pain: Impression: She does have some localized pain in her right upper quadrant. AST, ALT, ALP all within normal limits. 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 No cholelithiasis or choledocholithiasis, or intrahepatic biliary duct dilatation. Diffusely increased hepatic echotexture which can be seen with hepatocellular dysfunction such as hepatic steatosis. For this choledochal cyst, will consult GI to get a second opinion. Likely this will need outpatient follow-up. Continue Zofran as needed. Stool studies are also ordered, pending. Qualifiers: Abdominal location: unspecified location Qualified Code(s): R10.9 - Unspecified abdominal pain (4) Rheumatoid arthritis: Impression: Continue prednisone. Qualifiers: Rheumatoid arthritis location: unspecified site Rheumatoid factor presence: unspecified presence Qualified Code(s): M06.9 - Rheumatoid arthritis, unspecified
[2025-03-08] MEDS: MULTIVITAMIN TABLET PO SCH (08:58)
[2025-03-08] MEDS: LOSARTAN 50 MG TABLET PO SCH (08:58)
[2025-03-08] MEDS: FOLIC ACID 1 MG TABLET PO SCH (08:58)
[2025-03-08] MEDS: FLUoxetine 10 MG CAPSULE PO SCH (08:58)
[2025-03-08] MEDS: PANTOPRAZOLE 40 MG TABLET PO SCH (08:59)
[2025-03-08] MEDS: SODIUM CHLORIDE 0.9% 1,000 ML IV SCH (08:59)
--- NOTE | 2025-03-08 11:11 | Ultrasound Report ---
PROCEDURE: US Abdomen Complete INDICATIONS: abd pain - RUQ TECHNIQUE: Real-time scanning was performed of the abdominal and retroperitoneal organs, with image documentation. COMPARISON: None. FINDINGS: Liver: Increased liver echogenicity, commonly mild hepatic steatosis. Gallbladder: Mildly contracted without gallstones, sludge, wall thickening or pericholecystic edema. Biliary ducts: Intrahepatic bile ducts are non-dilated. Extrahepatic bile duct caliber measures 8 mm. No visualized calcified choledocholithiasis. At the area of maximal diameter, there is fusiform dilatation.. Normal is 6-7 mm or less in diameter, or 10 mm or less post-cholecystectomy. Pancreas: Visualized portions of the pancreas are sonographically normal. Spleen: Spleen is normal in size and homogeneous in echotexture. Kidneys: Kidneys are normal in size and echotexture. Right kidney measures 11.8 cm long; left kidney measures 10.8 cm long. No hydronephrosis or nephrolithiasis. No solid masses. No complex renal cystic lesions which require follow-up. Aorta: Visualized aorta is normal in caliber. Iliacs: Proximal common iliac arteries are normal in caliber. IVC: Intrahepatic inferior vena cava is patent. Miscellaneous: No free abdominal fluid. 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 2.No cholelithiasis or choledocholithiasis, or intrahepatic biliary duct dilatation. 3.Diffusely increased hepatic echotexture which can be seen with hepatocellular dysfunction such as hepatic steatosis. Reviewed by: Jean Cedeno MD on 03/08/2025 11:10 AM PDT Approved by: Jean Cedeno MD on 03/08/2025 11:10 AM PDT Station ID: [id number]
[2025-03-08] MEDS: OMEPRAZOLE 20 MG PO SCH (22:07)
[2025-03-08 23:37] VITALS: TEMP 97.7
[2025-03-09 05:30] LABS: HCT - HEMATOCRIT 38.5 % (37.0-47.0); HGB - HEMOGLOBIN 13.3 g/dL (12.0-16.0); MEAN PLATELET VOLUME 8.4 fL (7.9-10.8); PLT - PLATELET COUNT 333.0 10^3/uL (130-450); RED CELL DISTRIBUTION WIDTH 13.2 % (12.0-15.0)
[2025-03-09 05:50] LABS: ALT ALANINE AMINOTRANSFERASE 22.0 IU/L (10-60); AST ASPARTATE AMINOTRANSFERASE 32.0 IU/L (10-42); BUN - BLOOD UREA NITROGEN 11.0 mg/dL (6-20); CARBON DIOXIDE - CO2 20.0 mmol/L (21-32); CREATININE 0.8 mg/dL (0.6-1.3); GFR - MDRD 74.0 (>89); PHOSPHORUS 3.0 mg/dL (2.5-5.0)
[2025-03-09 07:43] VITALS: O2SAT 99
[2025-03-09 09:12] LABS: VBG PH 7.384 (7.31-7.41)
--- NOTE | 2025-03-09 09:37 | Discharge Summary ---
"Discharge Summary Admit Date: 03/07/25 Discharge Date: 03/09/25 Discharging Provider: Dr. Sonya Harrison Primary Care Provider: Dr. Mcbride Code Status: Attempt Resuscitation Discharge Facility Name: Home, self care DIAGNOSES Discharge Diagnoses with Status of Each Condition: Acute hyponatremiadue to GI losses. Corrected appropriately over 48 hours. Advised to continue adequate p.o. intake, hydration at home. Acute hypokalemiadue to GI losses, resolved. Abdominal painabdominal ultrasound showed fusiform dilatation of the mild common bile duct up to 8 mm, customer success representative of a type Ib choledochocyst. Will need outpatient follow-up with GI. Rheumatoid arthritiscontinue home prednisone, omeprazole, follow-up with bill of lading clerk outpatient. HPI History of Present Illness: Patient is a 59-year-old female with a history of rheumatoid arthritis who presents with intractable nausea, vomiting, diarrhea. Patient was recently diagnosed with RA, and her first injection of Orencia 3 days ago. Almost immediately after the reaction, she states that she did not feel well. She then started having explosive diarrhea, which she describes as fluorescent yellow in color. She also had nausea and vomiting. Her emesis was also yellow-colored. Her appetite was poor, and she cannot keep anything down without vomiting. She has some mild abdominal pain, which when she thinks about it is localized to her right upper quadrant. She describes it as cramping in nature. She did attend a picnic on the Thursday prior to this injection. She did have some potato salad and salmon. Nobody else at the picnic got sick except for her. She has had no fevers or chills. In the ER, patient was tachycardic with heart rate of 108, afebrile, saturating 97% on room air. Her blood pressure was within normal limits at 138/108. White count was elevated at 15.3. Her sodium was low at 113, potassium was 2.9, and she did not anion gap metabolic acidosis. Her magnesium was also low at 1.2. Her AST, ALT, ALP were within normal limits and her lipase was negative. TSH was within normal limits. UA was negative for any infection. Abdominal ultrasound is ordered, pending. CONSULTS | PROCEDURES Procedures: Abdominal ultrasound HOSPITAL COURSE Hospital Course: Patient is a 59-year-old female with a history of rheumatoid arthritis who presented with intractable nausea, vomiting, diarrhea. She was recently diagnosed with rheumatoid arthritis, and had her first injection of Orencia about 3 days ago. Immediately after, she noticed these GI symptoms. She presented with a very low sodium of 112, and this was corrected appropriately over 48 to 72 hours. Her diarrhea stopped, and she has been able to tolerate p.o. intake without throwing up. An abdominal ultrasound showed a fusiform dilatation of her biliary duct, possibly indicative of a choledochocyst. She had no fevers, chills, her white count responded appropriately without any antibiotics and was attributed to the viral process. The abdominal ultrasound did not show any evidence of cholecystitis, nor were there any gallstones. She is advised to return if this abdominal pain recurred, but in the meantime, she does need to follow-up with GI in the outpatient setting for further evaluation of the cyst as it can lead to highlights of infection and malignancy. This was explained to the patient. She was discharged home and advised close follow-up with GI and her primary care provider. ALLERGIES Allergies Allergy/AdvReac Type Severity Reaction Status Date / Time amoxicillin Allergy Hives Verified 03/07/25 09:10 codeine Allergy Hives Verified 03/07/25 09:10 famotidine (From Pepcid) Allergy Hives Verified 03/07/25 09:10 lidocaine Allergy elevated BP Verified 03/07/25 09:10 MEDICATIONS Ambulatory Orders Medication Instructions Recorded Confirmed multivitamin 1 ea PO DAILY 08/27/2103/07 fluoxetine 20 mg capsule See Rx Instructions .Route 0 07/19/24 03/07/25 .COMPLEX #90 caps losartan 100 mg tablet See Rx Instructions .Route 0 07/19/24 03/07/25 .COMPLEX #90 tabs abatacept 125 mg/mL subcutaneous 125 mg subcut QWEEK 0 03/07/25 03/07/25 auto-injector (Orencia ClickJect) Held on 03/09/25. Instructions: Resume on 03/16/25. Please discuss adverse reaction with bill of lading clerk prior to administration again. folic acid 1 mg tablet 1 mg PO DAILY 03/07/2503/07 methotrexate sodium 2.5 mg tablet 20 mg PO OAW 5 03/07/25 omeprazole 20 mg capsule,delayed 20 mg PO BID 09/09/25 09/09/25 release prednisone 5 mg tablet 10 - 15 mg PO DAILY 03/07/25 03/07/25 PHYSICAL EXAM AT DISCHARGE Vital Signs: Vital Signs x48h Temp Pulse Resp BP Pulse Ox 03/09/25 12:09 97.7 F 82 20 130/83 99 03/09/25 07:42 97.7 F 87 18 127/86 99 General Appearance: positive No acute distress and Alert; negative Anxious Eyes Bilateral: positive Normal inspection, PERRL and EOMI ENT: positive ENT inspection nml, Pharynx nml and No signs of dehydration Neck: positive Nml inspection, Thyroid nml and No JVD Respiratory: positive Chest non-tender, No respiratory distress and Breath sounds nml; negative Wheezes, Rales or Rhonchi Cardiovascular: positive Regular rate & rhythm, No murmur and No gallop; negative Tachycardia or Systolic murmur Abdomen: positive No organomegaly, No distention; negative Guarding, Rebound or Splenomegaly Back: positive Nml inspection; negative CVA tenderness (R) or CVA tenderness (L) Skin: positive Color nml, No rash, Warm and Dry Extremities: positive Non-tender, Full ROM, Nml appearance and No pedal edema Neurologic/Psychiatric: positive Oriented x3, Motor nml and Mood/affect nml LABS 03/09/25 05:23 03/09/25 05:23 FOLLOW UP Follow Up: Follow-up with PCP. Follow-up with GI. TIME SPENT Time Spent in Discharge (Minutes): 35 Discharge Plan Discharge Patient Disposition: 01 Home, Self Care Condition: Stable Prescriptions: Continued losartan 100 mg tablet See Rx Instructions .ROUTE .COMPLEX Qty: 90 0RF Dose Instruction: TAKE ONE TABLET BY MOUTH ONE TIME DAILY Rx Instructions: TAKE ONE TABLET BY MOUTH ONE TIME DAILY fluoxetine 20 mg capsule See Rx Instructions .ROUTE .COMPLEX Qty: 90 0RF Dose Instruction: TAKE ONE CAPSULE BY MOUTH ONE TIME DAILY Rx Instructions: TAKE ONE CAPSULE BY MOUTH ONE TIME DAILY multivitamin 1 EACH tablet 1 ea PO DAILY omeprazole 20 mg capsule,delayed release(DR/EC) 20 mg PO BID Patient Comments: TAKE 1 CAPSULE BY MOUTH 2 TIMES DAILY, 30 MINUTES PRIOR TO MEALS. prednisone 5 mg tablet 10 - 15 mg PO DAILY Patient Comments: TAKE ONE OR TWO TABLETS BY MOUTH DAILY Rx Instructions: depending on flare up methotrexate sodium 2.5 mg tablet 20 mg PO OAW Patient Comments: take 8 tablets by mouth once a week Rx Instructions: weekly on mondays folic acid 1 mg tablet 1 mg PO DAILY Patient Comments: TAKE ONE TABLET BY MOUTH DAILY Held Orencia ClickJect 125 mg/mL auto-injector 125 mg subcut QWEEK Hold Instructions: Resume on 03/16/25. Please discuss adverse reaction with bill of lading clerk prior to administration again. Rx Instructions: on sundays Activity Restrictions: Activity as Tolerated Diet: Soft Health Concerns: You came in for intractable nausea, vomiting, as well as explosive diarrhea. You were found to have very low electrolytes including your sodium and potassium. As we talked about, we had to bring your sodium up slowly. It has corrected appropriately. It sounds like the pain in your stomach, as well as your nausea, vomiting, diarrhea are all improving. We did an ultrasound of your abdomen and as discussed it shows dilation of your bile duct up to 8 mm, and what may represent a choledochal cyst. You do not have any gallstones or any inflammation of your gallbladder. You also are afebrile, and your infection numbers are within normal limits. We talked about how this is something you will need to follow-up with in the outpatient with a social problems specialist. They will likely do more imaging, and talk with you about surgical options. If you have repeated episodes like this one, please return to the emergency room. Please also follow-up with your rheumatologistif this was truly a side effect of this new medication that you started, you may need to try something else. Finally, please continue to follow-up with your primary care provider. Usually if you call their office, and let them know you are in the hospital, they can add you on in the next couple weeks. We are glad you are feeling better, thank you for allowing us to take care of you. Print Language: [place] Patient Instructions: ED Diet, [place] (Adult) Stand Alone Forms: PCP List Vitals documented within 30 minutes of discharge?: Yes"
[2025-03-09 12:11] VITALS: BP 130/83
== END 2025-03-09 12:10 | disposition home or self-care (01) | DRG 641 ==
LOC: ED 09:53 → ICU 11:51 → MS2 03-08 15:19
PROVIDERS: ADMIT Internal Medicine; ATTEND Internal Medicine